=== PATIENT | female | born 1980 | race Caucasian/White ===

== ENCOUNTER → 2021-12-20 | Outpatient (CLI) | payer BC | LOC: KOH-I 08:56 | DX: S92.001A Unspecified fracture of right calcaneus, initial encounter for closed fracture (principal); M77.9 Enthesopathy, unspecified; X58.XXXA Exposure to other specified factors, initial encounter | CPT/HCPCS: 73610; 73650 ==

== ENCOUNTER → 2022-01-20 | Outpatient (CLI) | payer BC | LOC: KOH-I 08:38 | DX: S92.001A Unspecified fracture of right calcaneus, initial encounter for closed fracture (principal); S92.101A Unspecified fracture of right talus, initial encounter for closed fracture; X58.XXXA Exposure to other specified factors, initial encounter; M77.31 Calcaneal spur, right foot | CPT/HCPCS: 73610; 73650 ==